=== PATIENT | female | born 1985 | race Caucasian/White ===

== ENCOUNTER → 2016-08-03 | Outpatient (CLI) | payer MEDICAID ==
--- NOTE | 2016-08-04 06:47 | US ---
EXAMINATION TYPE: US OB >= 14 wk fetus DATE OF EXAM: 08/03/2016 4:01 PM COMPARISON: See PACS ultrasound April 12, 2016 second trimester CLINICAL HISTORY: O36.63X0 Large for dates TECHNIQUE: Transabdominal (TA) pelvic ultrasound. GESTATIONAL AGE / DATING Physician Established: (35 weeks/1 days) EDC: 08/19/16 Dates by LMP: unknown Dates by First Scan: not available Dates by Current Scan: (37 weeks/5 days) EDC: 09/07/15 SURVEY IUP: Single PLACENTA: Anterior PREVIA: No Previa TIBURCIO: 10.7 cm CERVICAL LENGTH (transabdominal: norm > 3.0cm): 3.2 cm BIOMETRY PRESENTATION: Vertex BPD: 2.4 cm 38 weeks / 2 days HC: 1.0 cm 38 weeks / 1 days AC: 2.3 cm 38 weeks / 0 days FL: 0.7 cm 36 weeks / 3 days ESTIMATED WEIGHT IN GRAMS: 3257 grams ESTIMATED WEIGHT IN LBS/OZS: 7 lbs. 3 oz. WEIGHT PERCENTAGE BASED ON ESTABLISHED DATES: 98% HC/AC: 0.98 FL/AC: 21 HEART RATE: 156 bpm RHYTHM: Normal TECHNOLOGIST IMPRESSION: Measuring large for dates, called office, spoke with Rina to let them kn ow. Single live intrauterine gestation is redemonstrated. Normal vertex presentation is seen. There is no ultrasound evidence for placenta previa. Amniotic fluid index is within normal limits. biometr y measurements are advanced from expected range with weight estimated above the expected normal range. Findings correlate with large for gestational age. IMPRESSION: As above.
== END | disposition home or self-care (01) ==
LOC: RADUSWWP 15:27
PROVIDERS: ATTEND Obstetrics & Gynecology
DX: O36.63X0 Maternal care for excessive fetal growth, third trimester, not applicable or unspecified (principal); Z3A.37 37 weeks gestation of pregnancy
CPT/HCPCS: 76805

== ENCOUNTER → 2016-08-17 | Outpatient (CLI) | payer MEDICAID ==
--- NOTE | 2016-08-17 13:34 | US ---
EXAMINATION TYPE: US OB anatomy transabd DATE OF EXAM: 08/17/2016 11:37 AM COMPARISON: NONE HISTORY: LGA TECHNIQUE: Transabdominal (TA) EXAM MEASUREMENTS: GESTATIONAL AGE / DATING Physician Established: (37 weeks/1 days) EDC: 09/06/2016 Dates by LMP: unknown Dates by First Scan: not available Dates by Current Scan for: (38 weeks/6 days) EDC: 08/25/16 SURVEY IUP: Single PLACENTA: Anterior PREVIA: No previa TIBURCIO: 9.8 cm CERVICAL LENGTH (transabdominal: norm > 3.0cm): 3.1 cm BIOMETRY PRESENTATION: Vertex BPD: 9.8 cm 40 weeks / 2 days HC: 33.9 cm 39 weeks / 1 days AC: 35.5 cm 39 weeks / 3 days FL: 7.6 cm 38 weeks / 4 days ESTIMATED WEIGHT IN GRAMS: 3757 grams ESTIMATED WEIGHT IN LBS/OZS: 8 lbs. 5 oz. WEIGHT PERCENTAGE BASED ON ESTABLISHED DATE: 96 % HC/AC: 0.9 FL/AC: 21.2 HEART RATE: 140 bpm RHYTHM: Normal ANATOMY SEEN (within normal limits): Stomach 4 chamber heart Nose / Lips Diaphragm Kidneys (bilateral) Bladder Longitudinal Spine Transverse Spine ANATOMY NOT SEEN: Due to large size/ position, below anatomy not seen * Lateral Vent (< 1 cm) cm * Cisterna Magna (< 1.1 cm) cm * Nuchal Fold (< 0.6 cm) cm * Cerebellum (varies with age) cm Choroid Plexus (bilateral) Midline Falx Cavus Septi Pellucidi Four Chamber Heart Outflow tracts: LVOT/RVOT Situs Arms (bilateral) Legs (bilateral) Cord Insert Three Vessel Cord IMPRESSION: Single viable intrauterine corresponding to ultrasound age 38 weeks 6 days with estimated d ate of delivery 25 August 2016 by today's exam, limited survey
== END | disposition home or self-care (01) ==
LOC: RADUSWWP 10:56
PROVIDERS: ATTEND Obstetrics & Gynecology
DX: O36.63X0 Maternal care for excessive fetal growth, third trimester, not applicable or unspecified (principal); Z3A.38 38 weeks gestation of pregnancy
CPT/HCPCS: 76805

== ENCOUNTER 2016-08-19 16:14 | Inpatient (IN) | payer MEDICAID ==
[2016-08-19 16:43] LABS: Amorphous Sediment,Urine Occasional /hpf; Appearance,Urine Cloudy (Clear); Bilirubin,Urine Negative (Negative); Glucose,Urine (UA) Negative (Negative); Ketones,Urine Negative (Negative); Leukocyte Esterase,Urine Trace (Negative); Mucus,Urine Rare /hpf; Nitrite,Urine Negative (Negative); PH, Urine 6.5 (5.0-8.0); Particle Count 11107; Protein,Urine 1+ (Negative); RBC,Urine 2 /hpf (0-5); Specific Gravity,Urine 1.019 (1.001-1.035); Squamous Epithelial Cell,Urine 1 /hpf (0-4); UA Billing (MACRO vs. MICRO) MICRO; Urobilinogen,Urine <2.0 mg/dL (<2.0); WBC,Urine 13 /hpf (0-5)
[2016-08-19 16:55] LABS: Basophils % (A) 0 %; CH 26.8; CHCM 32.8; Eosinophils # (A) 0.1 k/uL (0-0.7); Eosinophils % (A) 1 %; HCT 36.7 % (34.0-46.0); HDW 3.55; Hypochromasia Slight; Luc # (Auto) 0.32; Luc % (Auto) 3; Lymphocytes # (A) 1.2 k/uL (1.0-4.8); Lymphocytes % (A) 11 %; MCH 26.9 pg (25.0-35.0); MCHC 32.8 g/dL (31.0-37.0); MCV 82.1 fL (80.0-100.0); Mean Platelet Volume 7.4; Monocytes # (A) 0.4 k/uL (0-1.0); Monocytes % (A) 3 %; Neutrophils # (A) 8.9 k/uL (1.3-7.7); Neutrophils % (A) 82 %; Poikilocytosis Slight; RBC 4.47 m/uL (3.80-5.40); RDW 13.3 % (11.5-15.5); WBC 10.9 k/uL (3.8-10.6); WBC (Perox) 11.43
[2016-08-19 17:04] LABS: Partial Thromboplastin Time 22.9 sec (22.0-30.0); Prothrombin Time 9.8 sec (9.0-12.0)
[2016-08-19 17:06] LABS: ALT 27 U/L (9-52); AST 22 U/L (14-36); Blood Urea Nitrogen 10 mg/dL (7-17); LDH 563 U/L (313-618); Non-African American GFR(MDRD) >60 (>60 ml/min/1.73 sqM); Uric Acid 4.1 mg/dL (3.7-7.4)
[2016-08-19] MEDS ORDERED: LIDOCAINE 1% 20 ML VIAL (10MG/ML) FOR IV START INTRADERMA PRN (17:19)
[2016-08-19] MEDS ORDERED: LACTATED RINGERS 1,000 ML IV ONE (17:19)
[2016-08-19] MEDS ORDERED: CITRIC ACID-SODIUM CITRATE 15 ML CUP PO ONE (17:19)
[2016-08-19] MEDS ORDERED: ceFAZolin 2 GM in SODIUM CHLORIDE 0.9% 100 ML IVPB ONE (17:19)
[2016-08-19] MEDS ORDERED: LACTATED RINGERS 1,000 ML IV SCH (17:30)
--- NOTE | 2016-08-19 17:37 | P.HPOB ---
History of Present Illness H&P Date: 08/19/16 Chief Complaint: Gestational hypertension This is a 31-year-old female 1 para 0 with an estimated date of confinement of 09/06/2016 based on first trimester ultrasound, estimated gestational age of 37-3/7 weeks, who presents to labor and delivery after being seen in the office today for routine visit. At that time her blood pressures were elevated to 140/96, 140/100, and 136/94. She did complain of significant swelling in her hands and feet but no headaches or blurry vision. She has had a occasional nausea due to reflux but no significant epigastric pain. Her course has been complicated by macrosomia with her last ultrasound 2 days ago showing estimated weight of 8 lbs. 5 oz. with 96th percentile. Her cervix is closed any percent and -3 station. She complains of mild occasional contractions but no strong contractions. She admits to good movement. 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. Review of Systems Constitutional: Denies fever, Denies weakness Eyes: denies blurred vision Cardiovascular: Denies chest pain Respiratory: Denies cough Gastrointestinal: Reports heartburn, Denies nausea, Denies vomiting Genitourinary: Reports Musculoskeletal: bilateral: ankle swelling, foot swelling Neurological: Denies headaches Psychiatric: Denies anxiety, Denies depression Past Medical History Additional Past Medical History / Comment(s): Hodgkin's lymphoma, age 22, status post radiation and chemo. History of Any Multi-Drug Resistant Organisms: None Reported Additional Past Surgical History / Comment(s): Lymph node excision, neck, 2009 Past Psychological History: No Psychological Hx Reported Smoking Status: Never smoker Past Alcohol Use History: None Reported Past Drug Use History: None Reported Medications and Allergies Home Medications Medication Instructions Recorded Confirmed Type Pnv with Ca,No.72/Iron/FA 1 each PO 08/19/16 History [ Plus Tablet] Allergies Allergy/AdvReac Type Severity Reaction Status Date / Time No Known Allergies Allergy Verified 08/19/16 16:24 Exam Osteopathic Statement: *. No significant issues noted on an osteopathic structural exam other than those noted in the History and Physical/Consult. - Vital Signs Vital signs: Intake and Output 08/19/16 08/19/16 08/19/16 06:59 14:59 22:59 Other: Weight 87.09 kg Patient Weight 08/20/16 06:59 Weight 87.09 kg HEENT: Within normal limits Heart: Regular rate and rhythm Lungs: Clear to auscultation bilaterally Abdomen: with fundal height of 39 cm heart tones: Reactive Contractions: Irregular Cervix: Closed/70%/-3 station Extremities: 1+ pitting edema in her lower extremities and puffiness in her hands. Deep tendon reflexes are 2 over 4 bilaterally on her lower extremities Results Result Diagrams: 08/19/16 16:48 08/19/16 16:48 Abnormal Lab Results - Last 24 Hours (Table) 08/19/16 08/19/16 08/19/16 Range/Units 16:20 16:48 16:48 WBC 10.9 H (3.8-10.6) k/uL Neutrophils # 8.9 H (1.3-7.7) k/uL Creatinine 0.50 L (0.52-1.04) mg/dL Urine Appearance Cloudy H (Clear) Urine Protein 1+ H (Negative) Ur Leukocyte Esterase Trace H (Negative) Urine WBC 13 H (0-5) /hpf Amorphous Sediment Occasional H (None) /hpf Hyaline Casts 5 H (0-2) /lpf Urine Mucus Rare H (None) /hpf Assessment and Plan (1) 37 weeks gestation of Status: Acute (2) Gestational hypertension Status: Acute (3) Macrosomia affecting management of mother in third trimester Status: Acute Plan: Plan is admission for gestational hypertension. Patient was counseled on the current guidelines that recommend delivery after 37 weeks with gestational hypertension or preeclampsia. Since she is remote from delivery and her cervix is closed, I have recommended section. I did also benefits counselor her on the possibility of attempting Cervidil cervical ripening followed by oxytocin induction of labor in the morning. Since her estimated weight is in the 96 percentile, she is aware that there is an increased risk of shoulder dystocia and wishes to proceed with section. I have discussed the risks, benefits, and alternative therapies for the above- mentioned procedure and for both sedation/anesthesia as well as necessary blood products administration, if indicated, as they pertain to this patient. The patient has indicated her understanding and acceptance of the risks and procedures discussed.
[2016-08-19] MEDS ORDERED: NALBUPHINE 10 MG/ML AMPUL ONE (18:10)
[2016-08-19] MEDS ORDERED: ONDANSETRON 4 MG/2 ML VIAL ONE (18:10)
[2016-08-19] MEDS ORDERED: OXYTOCIN 10 UNIT/ML 1 ML VIAL IM ONE (18:10)
[2016-08-19] MEDS ORDERED: PHENYLEPHRINE-0.9% NACL SYG 1 MG/10 ML SYRINGE ONE (18:10)
[2016-08-19] MEDS ORDERED: MORPHINE SULFATE (PF) 0.3 MG/0.3 ML SYR ONE (18:10)
[2016-08-19] MEDS ORDERED: diphenhydrAMINE 50 MG/ML 1 ML VIAL IVP PRN ×3 (18:33→20:09)
[2016-08-19] MEDS ORDERED: NALBUPHINE 10 MG/ML AMPUL IV PRN (18:33)
[2016-08-19] MEDS ORDERED: ONDANSETRON 4 MG/2 ML VIAL IVP PRN ×2 (18:33→20:09)
[2016-08-19] MEDS ORDERED: MORPHINE SULFATE 4 MG/ML SYRINGE IVP PRN (18:33)
[2016-08-19] MEDS ORDERED: METOCLOPRAMIDE 5 MG/ML 2 ML VIAL IVP PRN ×2 (18:33→20:09)
[2016-08-19] MEDS ORDERED: NALOXONE 0.4 MG/ML 1 ML VIAL IV PRN ×2 (18:33→20:09)
--- NOTE | 2016-08-19 18:53 | P.OP ---
Date of Procedure: 08/19/16 Preoperative Diagnosis: 1. Intrauterine at 37-3/7 weeks. 2. Gestational hypertension. 3. Remote from delivery. 4. macrosomia. Postoperative Diagnosis: Same Procedure(s) Performed: Primary low transverse section Anesthesia: spinal (Duramorph) Surgeon: Jaja London Moderate Needs Teacher #1: Donald Blackwood Estimated Blood Loss (ml): 600 Pathology: other (Placenta) Condition: stable Disposition: floor Indications for Procedure: This is a 31-year-old female 1 para 0 at 37-3/7 weeks who presented with elevated blood pressures in the office. She continued to have elevated blood pressures in triage. Her labs showed 1+ protein but all other labs were normal. Based on her consistent elevated blood pressures, macrosomia based on ultrasound, and remote from delivery, the decision was made to proceed with section. I have discussed the risks, benefits, and alternative therapies for the above- mentioned procedure and for both sedation/anesthesia as well as necessary blood products administration, if indicated, as they pertain to this patient. The patient has indicated her understanding and acceptance of the risks and procedures discussed. Operative Findings: A viable female infant is noted in the vertex presentation with scores of 9 at 1 minute and 8 at 5 minutes and infant weight of 7 lbs. 11 oz. Placenta did appear to have an extra lobe. Normal uterus tubes and ovaries are noted. Description of Procedure: The patient is taken to the operating room where she is placed in the dorsal supine position with leftward tilt after spinal Duramorph anesthesia is given. She is prepped and draped in the normal sterile fashion. Skin was tested and found to be adequately anesthetized. A Pfannenstiel skin incision was made with a scalpel. A second knife was used to carry the incision down to the underlying layer of fascia. The fascia was nicked in the midline with a scalpel and then extended laterally bilaterally with Kidd scissors. The anterior lip of the fascia was grasped with 2 Miranda clamps and then dissected off the underlying rectus muscle in the midline with Kidd scissors. The inferior aspect of the fascial incision was grasped with 2 Miranda clamps and dissected off the underlying rectus muscle and the midline with Kidd scissors. Next the peritoneum layer was tented up with 2 hemostats and then entered sharply with the scalpel. The incision is extended superiorly and inferiorly with Metzenbaum scissors. Next a DeLee retractor is placed. The vesicouterine peritoneum is entered sharply with Metzenbaum scissors and extended laterally bilaterally with Metzenbaum scissors and then the bladder flap is pushed inferiorly. The lower uterine segment is incised in transverse fashion with the scalpel and then bluntly entered with a hemostat. Clear fluid is noted. The incision was then extended laterally bilaterally with 2 fingers. Next the infant's head is delivered through the incision. Nose and mouth are bulb suctioned. The remainder of the infant is easily delivered and placed on mother 's abdomen. Cord is clamped and cut. Infant is taken to warmer by nursing staff. Uterine fundus is gently massaged and placenta is delivered manually. Uterus is exteriorized and cleared of all clots and debris. Uterine incision is closed with 0 Vicryl suture in a running locked fashion. A second layer of 0 Vicryl suture is used in a running fashion for hemostasis. Once adequate hemostasis as assured, the vesicouterine peritoneum is reapproximated with 2-0 Vicryl suture in a running fashion. Posterior cul-de-sac is suctioned of all clots and debris. Uterus is returned to the abdomen. Incision is noted to be hemostatic. Peritoneal layer is closed with 0 Vicryl suture in a running fashion. Muscle layer is reapproximated with 0 Vicryl suture in interrupted fashion. Fascia layer is then closed with 0 PDS suture with 2 sutures meeting in the midline and the knots buried in either side and in the midline. The subcutaneous tissue was then closed with 2-0 Vicryl suture. Skin layer was then closed with tg. All sponge and needle counts are correct. The patient is taken to recovery room in stable condition.
[2016-08-19] MEDS ORDERED: diphenhydrAMINE 50 MG CAP PO PRN (20:09)
[2016-08-19] MEDS ORDERED: LANOLIN CREAM 5 GM TUBE TOPICAL PRN (20:09)
[2016-08-19] MEDS ORDERED: ZOLPIDEM 5 MG TAB PO PRN (20:09)
[2016-08-19] MEDS ORDERED: ACETAMINOPHEN TAB 325 MG TAB PO PRN (20:09)
[2016-08-19] MEDS ORDERED: diphenhydrAMINE 25 MG CAP PO PRN (20:09)
[2016-08-19] MEDS ORDERED: SIMETHICONE 80 MG CHEWABLE PO PRN (20:09)
[2016-08-19] MEDS ORDERED: Acetaminophen-Codeine 300-30mg TAB PO PRN ×2 (20:09)
[2016-08-19 20:28] VITALS: BMI 35.1
[2016-08-19] MEDS: SENNOSIDES-DOCUSATE SODIUM 1 EACH TAB PO SCH (20:55)
[2016-08-19] MEDS: KETOROLAC 30 MG/ML 1 ML VIAL IVP PRN (22:48)
[2016-08-19] MEDS: LACTATED RINGERS 1,000 ML IV SCH (22:52)
[2016-08-20] MEDS: OXYTOCIN 30 UNITS/500 ML NS 30 UNIT in SALINE 1 500ML.BAG IV SCH ×2 (01:19→05:47)
[2016-08-20 05:41] LABS: Basophils % (A) 0 %; CH 27.1; CHCM 33.6; Eosinophils # (A) 0.2 k/uL (0-0.7); Eosinophils % (A) 1 %; HCT 28.5 % (34.0-46.0); HDW 3.56; HGB 10.4 gm/dL (11.4-16.0); Luc # (Auto) 0.19; Luc % (Auto) 2; Lymphocytes # (A) 0.8 k/uL (1.0-4.8); Lymphocytes % (A) 7 %; MCH 29.3 pg (25.0-35.0); MCHC 36.3 g/dL (31.0-37.0); MCV 80.8 fL (80.0-100.0); Mean Platelet Volume 8.1; Monocytes # (A) 0.4 k/uL (0-1.0); Monocytes % (A) 3 %; Neutrophils # (A) 9.5 k/uL (1.3-7.7); Neutrophils % (A) 86 %; Poikilocytosis Slight; RBC 3.53 m/uL (3.80-5.40); RDW 13.4 % (11.5-15.5); WBC (Perox) 12.09
[2016-08-20] MEDS: LACTATED RINGERS 1,000 ML IV SCH (05:47)
--- NOTE | 2016-08-20 08:14 | P.PN ---
Progress Note - Text Date:08/20 Time:705 Patient is status post . Patient seen this morning with VAS score of 2.no c/o of pruritus, no c/o nausea/vomiting, comfortable and doing well.
[2016-08-20] MEDS: SENNOSIDES-DOCUSATE SODIUM 1 EACH TAB PO SCH ×2 (08:15→21:01)
[2016-08-20] MEDS ORDERED: PRENATAL VIT-IRON-FOLIC ACID 1 EACH CAP PO SCH (09:00)
--- NOTE | 2016-08-20 09:02 | P.PNOBGPC ---
Subjective - Subjective Principal diagnosis: Status post primary section postoperative day #1 Interval history: Patient is doing well. She is ambulating. She has been able to urinate so far this morning. She denies any flatus or bowel movement yet. Pain is well- controlled. Baby is in special care nursery at this time. Lochia is minimal. Patient reports: Reports appetite normal, Reports voiding normally, Reports pain well controlled, Reports ambulating normally [place]: other (In special care nursery) Objective - Vital Signs Latest vital signs: Vital Signs Temp Pulse Resp BP Pulse Ox 08/20/16 04:00 98.0 F 110 H 16 133/91 08/20/16 00:00 98.0 F 106 H 16 134/73 96 08/19/16 20:59 97.9 F 111 H 16 120/65 97 08/19/16 20:29 121 H 16 144/67 98 08/19/16 19:59 114 H 16 136/66 99 08/19/16 19:44 106 H 16 150/61 99 08/19/16 19:29 112 H 16 99 08/19/16 19:14 96.8 F L 105 H 16 102/50 100 08/19/16 18:59 111 H 16 102/56 100 08/19/16 17:19 97.0 F L 127 H 16 149/94 Intake and Output 08/19/16 08/20/16 08/20/16 22:59 06:59 14:59 Intake Total 1100 Output Total 850 950 Balance 250 -950 Intake: IV 500 Blood Product 600 Output: Urine 250 350 Uretheral (Khalil) 350 Estimated Blood Loss 600 600 Other: Weight 87.09 kg - Exam Extremities: Present: edema. Absent: tenderness Abdomen: Present: normal appearance, soft (Positive bowel sounds 4). Absent: distention, tenderness Incision: Present: normal, dry, intact Uterus: Present: normal, firm. Absent: tenderness - Labs Labs: Abnormal Lab Results - Last 24 Hours (Table) 08/19/16 08/19/16 08/19/16 Range/Units 16:20 16:48 16:48 WBC 10.9 H (3.8-10.6) k/uL RBC (3.80-5.40) m/uL Hgb (11.4-16.0) gm/dL Hct (34.0-46.0) % Plt Count (150-450) k/uL Neutrophils # 8.9 H (1.3-7.7) k/uL Lymphocytes # (1.0-4.8) k/uL Creatinine 0.50 L (0.52-1.04) mg/dL Urine Appearance Cloudy H (Clear) Urine Protein 1+ H (Negative) Ur Leukocyte Esterase Trace H (Negative) Urine WBC 13 H (0-5) /hpf Amorphous Sediment Occasional H (None) /hpf Hyaline Casts 5 H (0-2) /lpf Urine Mucus Rare H (None) /hpf 08/20/16 Range/Units 05:22 WBC 11.0 H (3.8-10.6) k/uL RBC 3.53 L (3.80-5.40) m/uL Hgb 10.4 L (11.4-16.0) gm/dL Hct 28.5 L (34.0-46.0) % Plt Count 125 L (150-450) k/uL Neutrophils # 9.5 H (1.3-7.7) k/uL Lymphocytes # 0.8 L (1.0-4.8) k/uL Creatinine (0.52-1.04) mg/dL Urine Appearance (Clear) Urine Protein (Negative) Ur Leukocyte Esterase (Negative) Urine WBC (0-5) /hpf Amorphous Sediment (None) /hpf Hyaline Casts (0-2) /lpf Urine Mucus (None) /hpf Assessment and Plan (1) 37 weeks gestation of Current Visit: Yes Status: Acute Code(s): Z3A.37 - 37 WEEKS GESTATION OF SNOMED Code(s): 38375335 (2) Gestational hypertension Current Visit: Yes Status: Acute Code(s): O13.9 - GESTATIONAL HTN W/O SIGNIFICANT PROTEINURIA, UNSP TRIMESTER SNOMED Code(s): 85395869 (3) Macrosomia affecting management of mother in third trimester Current Visit: Yes Status: Acute Code(s): O36.63X0 - MATERNAL CARE FOR EXCESS GROWTH, THIRD TRIMESTER, UNSP SNOMED Code(s): 23792071 (4) delivery delivered Narrative/Plan: Impression is status post delivery postoperative day #1. Plan is to continue with postoperative care. Will advance diet after flatus. Patient is encouraged to continue ambulating. Current Visit: Yes Status: Acute Code(s): O82 - ENCOUNTER FOR DELIVERY WITHOUT INDICATION SNOMED Code(s): 152510233
[2016-08-20] MEDS: KETOROLAC 30 MG/ML 1 ML VIAL IVP PRN (20:59)
[2016-08-21] MEDS: LACTATED RINGERS 1,000 ML IV SCH (02:16)
--- NOTE | 2016-08-21 07:18 | P.PNOBGPC ---
Subjective - Subjective Principal diagnosis: Status post primary section postoperative day #2 Interval history: Patient is ambulating. She is eating solid foods and did start to pass flatus. She denies any bowel movement. She is urinating without difficulty. Pain is fairly well controlled. Lochia is very minimal. Baby is in special care nursery. Patient reports: Reports appetite normal, Reports voiding normally, Reports pain well controlled, Reports ambulating normally : other (In special care nursery) Objective - Vital Signs Latest vital signs: Vital Signs Temp Pulse Resp BP Pulse Ox 08/21/16 00:00 97.7 F 108 H 18 113/63 98 08/20/16 16:00 97.7 F 99 20 138/94 98 08/20/16 12:00 97.8 F 99 20 125/78 98 08/20/16 08:00 98.3 F 105 H 20 131/93 96 - Exam Extremities: Present: edema Abdomen: Present: normal appearance, soft (Positive bowel sounds 4). Absent: distention, tenderness Incision: Present: normal, dry, intact. Absent: erythematous Uterus: Present: normal, firm. Absent: tenderness Assessment and Plan (1) 37 weeks gestation of Current Visit: Yes Status: Acute Code(s): Z3A.37 - 37 WEEKS GESTATION OF SNOMED Code(s): 98811369 (2) Gestational hypertension Current Visit: Yes Status: Acute Code(s): O13.9 - GESTATIONAL HTN W/O SIGNIFICANT PROTEINURIA, UNSP TRIMESTER SNOMED Code(s): 70668578 (3) Macrosomia affecting management of mother in third trimester Current Visit: Yes Status: Acute Code(s): O36.63X0 - MATERNAL CARE FOR EXCESS GROWTH, THIRD TRIMESTER, UNSP SNOMED Code(s): 73647421 (4) delivery delivered Narrative/Plan: Impression is status post primary low transverse section postoperative day #2. Plan is to continue with postoperative care since baby is in special care nursery at this time. Current Visit: Yes Status: Acute Code(s): O82 - ENCOUNTER FOR DELIVERY WITHOUT INDICATION SNOMED Code(s): 195794834
[2016-08-21] MEDS: SENNOSIDES-DOCUSATE SODIUM 1 EACH TAB PO SCH ×2 (07:57→20:55)
[2016-08-21] MEDS: IBUPROFEN 600 MG TAB PO PRN (15:21)
[2016-08-22] MEDS: IBUPROFEN 600 MG TAB PO PRN ×2 (02:25→17:52)
--- NOTE | 2016-08-22 08:01 | P.PNOBGPC ---
Subjective - Subjective Principal diagnosis: Status post primary section postoperative day #3 Interval history: Patient is doing well. She is passing flatus and bowel movement. Pain is fairly well controlled with her pain medication. She is pumping her breast milk. Lochia is decreasing. Baby is in special care nursery. Patient reports: Reports appetite normal, Reports voiding normally, Reports pain well controlled, Reports ambulating normally : other (In special care nursery) Objective - Vital Signs Latest vital signs: Vital Signs Temp Pulse Resp BP 08/22/16 00:00 97.7 F 110 H 18 130/88 08/21/16 16:00 97.5 F L 116 H 16 134/87 08/21/16 08:01 97.5 F L Intake and Output 08/21/16 08/22/16 08/22/16 22:59 06:59 14:59 Other: Voiding Method Toilet - Exam Extremities: Present: edema Abdomen: Present: soft (Positive bowel sounds 4). Absent: distention, tenderness Incision: Present: normal, dry, intact Uterus: Present: normal, firm. Absent: tenderness Assessment and Plan (1) 37 weeks gestation of Current Visit: Yes Status: Acute Code(s): Z3A.37 - 37 WEEKS GESTATION OF SNOMED Code(s): 98329970 (2) Gestational hypertension Current Visit: Yes Status: Acute Code(s): O13.9 - GESTATIONAL HTN W/O SIGNIFICANT PROTEINURIA, UNSP TRIMESTER SNOMED Code(s): 03635779 (3) Macrosomia affecting management of mother in third trimester Current Visit: Yes Status: Acute Code(s): O36.63X0 - MATERNAL CARE FOR EXCESS GROWTH, THIRD TRIMESTER, UNSP SNOMED Code(s): 90530158 (4) delivery delivered Narrative/Plan: Impression is status post primary section postoperative day #3. Plan is to continue with postoperative care through tomorrow. Her baby is still in special care nursery. We'll give a prescription for breast pump. Anticipate discharge home tomorrow. Current Visit: Yes Status: Acute Code(s): O82 - ENCOUNTER FOR DELIVERY WITHOUT INDICATION SNOMED Code(s): 117686861
[2016-08-22] MEDS: SENNOSIDES-DOCUSATE SODIUM 1 EACH TAB PO SCH ×2 (09:59→20:46)
[2016-08-23] MEDS: IBUPROFEN 600 MG TAB PO PRN (07:54)
--- NOTE | 2016-08-23 08:29 | P.DS ---
Providers Date of admission: 08/19/16 17:18 Expected date of discharge: 08/23/16 Attending physician: Jaja London Primary care physician: Jaja London - Discharge Diagnosis(es) (1) 37 weeks gestation of Current Visit: Yes Status: Acute (2) Gestational hypertension Current Visit: Yes Status: Acute (3) Macrosomia affecting management of mother in third trimester Current Visit: Yes Status: Acute (4) delivery delivered Current Visit: Yes Status: Acute Hospital Course: This is a 31-year-old female 1 para 0 who presented from the office after elevated blood pressures were noted. She continued to have elevated blood pressures at the hospital and therefore underwent a primary low transverse section secondary to gestational hypertension and macrosomia remote from delivery. She delivered a viable female infant with scores of 9 at 1 minute and 8 at 5 minutes and weight of 7 lbs. 11 oz. Her postoperative course is essentially uncomplicated. She did have some isolated elevated blood pressures but she thinks that was due to anxiety. Currently her blood pressures have stabilized. She is passing flatus and bowel movement. She is urinating without difficulty. She is pumping her breast milk. Lochia is decreasing. Pain is well controlled with just ibuprofen. Vital signs are stable. Abdomen is soft with positive bowel sounds 4. Incision is clean dry and intact. Extremities show negative Homans, but 2+ pitting edema. Impression is status post primary low transverse section postoperative day #4. Plan is to discharge home today. Placido will be removed and sterile strips placed prior to discharge. Routine postoperative and instructions are given. She is advised to follow up in the office in approximately 1 week for a postoperative check and in 6 weeks for check. She is advised to call the office if she has any further questions or concerns prior to her appointment time. Procedures: Primary low transverse section on 08/19/2016 Patient Condition at Discharge: Stable Plan - Discharge Summary New Discharge Prescriptions: Acetaminophen-Codeine 300-30mg [Tylenol w/codeine #3] 1 each PO Q4HR PRN #30 tab PRN Reason: Mild Pain Ibuprofen [Motrin] 600 mg PO Q6HR PRN #60 tab PRN Reason: Mild Pain Or Fever >= 100.5 Discharge Medication List Pnv with Ca,No.72/Iron/FA [ Plus Tablet] 1 tab PO DAILY 08/19/16 [ History] Acetaminophen-Codeine 300-30mg [Tylenol w/codeine #3] 1 each PO Q4HR PRN #30 tab 08/22/16 [Rx] Ibuprofen [Motrin] 600 mg PO Q6HR PRN #60 tab 08/22/16 [Rx] Follow up Appointment(s)/Referral(s): Jaja London DO [Primary Care Provider] - 1 Week Activity/Diet/Wound Care/Special Instructions: Instructions 1. Do not begin any exercise program for 3 weeks. 2. Do not resume sexual relations for 3 weeks or longer if uncomfortable. 3. You may take tub baths or showers at any time. 4. You may use tampons if desired after 3 weeks. 5. Keep the area of episiotomy (stitches) clean and dry. 6. If you are not nursing, wear a good fitting, supportive bra during the day and limit fluid intake for at least 1 week to prevent breast engorgement. 7. Call the office, [phone], within the next week to make appointment for your 6 week checkup if it has not already been made. 8. Report any of the following occurrences to the doctor promptly: a. Heavy, excessive bleeding b. Chills, fever c. Burning or frequency of urination d. Pain or redness and breasts if nursing e. Increasing pain or swelling in episiotomy (stitches). In addition to the above instructions, the following additional should be followed: 1. No heavy lifting or straining (exercising) until after 6 week checkup. 2. Keep abdominal incision clean and dry: You may wear a dressing if more comfortable. 3. Make office appointment for 10 days after going home or as instructed by her doctor. Discharge Disposition: HOME SELF-CARE
[2016-08-23] MEDS: SENNOSIDES-DOCUSATE SODIUM 1 EACH TAB PO SCH (09:14)
[2016-08-23 14:25] VITALS: TEMP 97.7
[2016-08-23] MEDS ORDERED: LABETALOL 100 MG TAB PO SCH ×2 (18:00→21:00)
[2016-08-23 18:59] VITALS: BP 138/99; PULSE 107; RESP 18
== END 2016-08-23 19:01 | disposition home or self-care (01) | DRG 766 ==
LOC: FBPOP 16:14 → 4FBP 17:18
PROVIDERS: ADMIT Obstetrics & Gynecology; ATTEND Obstetrics & Gynecology
PROC: 10D00Z1 Extraction of Products of Conception, Low, Open Approach (ICD-10-PCS; principal; 2016-08-19 18:00)
DX: O13.4 Gestational [pregnancy-induced] hypertension without significant proteinuria, complicating childbirth (principal); K21.9 Gastro-esophageal reflux disease without esophagitis; O99.62 Diseases of the digestive system complicating childbirth; O36.63X0 Maternal care for excessive fetal growth, third trimester, not applicable or unspecified; Z37.0 Single live birth; Z3A.37 37 weeks gestation of pregnancy; Z85.71 Personal history of Hodgkin lymphoma; Z92.21 Personal history of antineoplastic chemotherapy; Z92.3 Personal history of irradiation; Z79.899 Other long term (current) drug therapy
CPT/HCPCS: 59025; 81001; 82565; 83615; 84450; 84460; 84520; 84550; 85025; 85610; 85730; 86850; 86900; 86901; 88307; 99215

== ENCOUNTER → 2018-02-10 | Outpatient (CLI) | payer MEDICAID ==
[2018-02-10 11:00] LABS: HCT 43.4 % (34.0-46.0); HGB 13.9 gm/dL (11.4-16.0); MCH 26.8 pg (25.0-35.0); MCHC 32.1 g/dL (31.0-37.0); MCV 83.4 fL (80.0-100.0); Mean Platelet Volume 6.6; Platelet Count 243 k/uL (150-450); RDW 13.2 % (11.5-15.5); WBC 6.9 k/uL (3.8-10.6)
[2018-02-10 11:23] LABS: Glucose 61 mg/dL (74-99)
== END | disposition home or self-care (01) ==
LOC: LABWHC1 10:07
PROVIDERS: ATTEND Obstetrics & Gynecology
DX: Z34.81 Encounter for supervision of other normal pregnancy, first trimester (principal); Z3A.00 Weeks of gestation of pregnancy not specified
CPT/HCPCS: 36415; 82565; 82947; 85027; 86762; 86780; 86850; 86900; 86901; 87340

== ENCOUNTER → 2018-02-16 | Outpatient (CLI) | payer MEDICAID ==
--- NOTE | 2018-02-16 23:05 | US ---
EXAMINATION TYPE: Ultrasound OB <= 14 week fetus DATE OF EXAM: 09/20/17 COMPARISON: NONE CLINICAL HISTORY: 32-year-old female Z36 CONFIRM DATES. EXAM PERFORMED: Transabdominal (TA) FINDINGS: EXAM MEASUREMENTS: GESTATIONAL AGE / DATING Physician Established: Not yet established Dates by LMP: 12/05/2017 (10 weeks/3 days) EDC: 09/11/2017 Dates by First Scan: No previous this is first scan Dates by Current Scan for: (10 weeks/5 days) EDC: 09/09/2017 MATERNAL ANATOMY Uterus: 12.5 x 6.8 x 7.5 cm Right Ovary: 2.6 2.4 X 2.1 cm Left Ovary: 2.5 x 2.4 x 2.3 Post CDS / Adnexa: wnl Presence of free fluid: no Presence of corpus luteal cyst: small left ov cyst 1.1 x 0.9 x 0.9 cm Presence of subchorionic bleed: no GESTATION / SURVEY CRL: 4.1 cm (11 weeks/0 days) MSD: 4.7 cm (10 weeks/2 days) Yolk Sac (normal less than 6mm): not seen placenta: anterior, low lying with apparent marginal placenta previa. Heart Rate: 138 bpm Rhythm: normal IUP: yes Date of LMP: 12/05/17 Beta HcG (if available): NA IMPRESSION: 1. Single live intrauterine with estimated gestational age of 10 weeks 3 days [facility]. [facility] (10 weeks 5 days). 2. Marginal placenta previa at this time. Reassess at the patient's follow-up. 3. Complete survey recommended at 18-20 weeks.
== END | disposition home or self-care (01) ==
LOC: RADUSWWP 15:30
PROVIDERS: ATTEND Obstetrics & Gynecology
DX: O44.21 Partial placenta previa NOS or without hemorrhage, first trimester (principal); Z3A.10 10 weeks gestation of pregnancy
CPT/HCPCS: 76801

== ENCOUNTER → 2018-05-26 | Outpatient (CLI) | payer MEDICAID ==
[2018-05-26 17:13] LABS: HCT 35.9 % (34.0-46.0); HGB 11.7 gm/dL (11.4-16.0); MCH 28.6 pg (25.0-35.0); MCHC 32.6 g/dL (31.0-37.0); MCV 87.5 fL (80.0-100.0); Mean Platelet Volume 6.5; Platelet Count 210 k/uL (150-450); RDW 14.6 % (11.5-15.5); WBC 9.2 k/uL (3.8-10.6)
== END | disposition home or self-care (01) ==
LOC: LABWHC1 15:57
PROVIDERS: ATTEND Obstetrics & Gynecology
DX: Z34.82 Encounter for supervision of other normal pregnancy, second trimester (principal)
CPT/HCPCS: 36415; 82950; 85027

== ENCOUNTER → 2018-07-12 | Outpatient (CLI) | payer MEDICAID ==
[2018-07-12 16:20] LABS: Amorphous Sediment,Urine Occasional /hpf; Appearance,Urine Cloudy (Clear); Bilirubin,Urine Negative (Negative); Blood,Urine Negative (Negative); Calcium Oxalate Crystals,Urine Few /hpf; Color,Urine Dark Yellow; Glucose,Urine (UA) Negative (Negative); Ketones,Urine Negative (Negative); Leukocyte Esterase,Urine Negative (Negative); Mucus,Urine Few /hpf; Nitrite,Urine Negative (Negative); PH, Urine 6.5 (5.0-8.0); Protein,Urine 1+ (Negative); RBC,Urine 6 /hpf (0-5); Specific Gravity,Urine 1.026 (1.001-1.035); Squamous Epithelial Cell,Urine 20 /hpf (0-4); WBC,Urine 19 /hpf (0-5)
== END ==
LOC: LABWHC1 14:17
PROVIDERS: ATTEND Obstetrics & Gynecology
DX: R31.9 Hematuria, unspecified (principal)
CPT/HCPCS: 81001; 87086

== ENCOUNTER 2018-07-27 13:49 | Outpatient (CLI) | payer MEDICAID ==
--- NOTE | 2018-09-06 13:29 | P.MSEPDOC ---
Presenting Problems - Arrival Data Date of Arrival on Unit: 07/27/18 Time of Arrival on Unit: 14:00 Mode of Transport: Ambulatory I agree with the RN Medical Screening Exam: Yes Risk & Benefit of care provided described in d/c instruction: Yes Diagnosis: GESTATIONAL HTN W/O SIGNIFICANT PROTEINURIA, THIRD TRIMESTER
== END 2018-07-27 14:36 | disposition home or self-care (01) ==
LOC: FBPOP 13:49
PROVIDERS: ATTEND Obstetrics & Gynecology
DX: O13.3 Gestational [pregnancy-induced] hypertension without significant proteinuria, third trimester (principal); Z3A.00 Weeks of gestation of pregnancy not specified
CPT/HCPCS: 59025

== ENCOUNTER 2018-08-03 11:57 | Outpatient (CLI) | payer MEDICAID ==
[2018-08-03 13:54] VITALS: BP 126/82; PULSE 122; RESP 16; TEMP 97.3
--- NOTE | 2018-08-04 08:35 | P.MSEPDOC ---
Presenting Problems - Arrival Data Date of Arrival on Unit: 08/03/18 Time of Arrival on Unit: 11:57 Mode of Transport: Ambulatory - Complaint OB-Reason for Admission/Chief Complaint: NST Comment: hx of pih severe with last preg Medical History - Information : 2 Para: 1 Term: 0 : 1 Abortions: Spontaneous or Elective: 0 Number of Living Children: 0 - Gestational Age Gestational Age by CLARISA (wks/days): 34 Weeks and 3 Days - History Complications: Other Review of Systems - Review of Systems Constitutional: No problems Breast: No problems ENT: No problems Cardiovascular: No problems Respiratory: No problems Gastrointestinal: No problems Genitourinary: No problems Musculoskeletal: No problems Neurological: No problems Skin: No problems Comment: heart rate 120's dr aware Vital Signs - Temperature Temperature: 97.3 F Temperature Source: Temporal Artery Scan - Pulse Right Radial Pulse Rate: 122 Pulse Assessment Method: Automatic Cuff - Respirations Respiratory Rate: 16 Oxygen Delivery Method: Room Air O2 Sat by Pulse Oximetry: 96 - Blood Pressure Right Arm Blood Pressure: 126/82 Blood Pressure Mean: 96 Blood Pressure Source: Automatic Cuff Medical Screen Scoring (Pre) - Cervical Exam Dilation: Exam Deferred Effacement: Exam Deferred Membranes: Intact - Uterine Contractions Frequency: N/A Duration: N/A Intensity: N/A - Maternal Vital Signs Maternal Temperature: N/A Maternal Blood Pressure: N/A Signs of Preeclampsia: N/A Maternal Respirations: N/A - Pain Assessment Pain Scale Used: Numeric (1 - 10) Pain Intensity: 0 Pain Behavior: Vocalization - Maternal Trauma Maternal Trauma: N/A - Assessment Baseline FHR: 160 Heart Rate - NICHD Category: Category I (Normal) = 0 NST: Reactive Position: N/A Station: N/A - Total Score Total Score (Pre): 0 - Level of Risk Level of Risk: Low (0-5) Physician Notification (Pre) - Physician Notified Physician Notified Date: 08/03/18 Physician Notified Time: 12:35 Physician/Practitioner Notifed:: francesca Spoke With: francesca New Order Received: Yes (discharge with instructions) - Notification Comment Comment: biweekly nst's. Disposition - Disposition OB Disposition: Discharge to home, Written follow up instructions reviewed Discharge Date: 08/03/18 Discharge Time: 12:35 I agree with the RN Medical Screening Exam: Yes Risk & Benefit of care provided described in d/c instruction: Yes Diagnosis: PERSONAL HISTORY OF COMP OF PREG, CHLDBRTH AND THE PUERP
== END 2018-08-03 12:35 | disposition home or self-care (01) ==
LOC: FBPOP 11:57
PROVIDERS: ATTEND Obstetrics & Gynecology
DX: Z09 Encounter for follow-up examination after completed treatment for conditions other than malignant neoplasm (principal); Z87.59 Personal history of other complications of pregnancy, childbirth and the puerperium; Z3A.34 34 weeks gestation of pregnancy
CPT/HCPCS: 59025

== ENCOUNTER 2018-08-04 15:05 | Observation (INO) | payer MEDICAID ==
[2018-08-04 16:06] LABS: Appearance,Urine Clear (Clear); Bilirubin,Urine Negative (Negative); Blood,Urine Negative (Negative); Color,Urine Light Yellow; Glucose,Urine (UA) Negative (Negative); Ketones,Urine 1+ (Negative); Leukocyte Esterase,Urine Negative (Negative); Nitrite,Urine Negative (Negative); Protein,Urine Negative (Negative); Specific Gravity,Urine 1.004 (1.001-1.035); Urobilinogen,Urine <2.0 mg/dL (<2.0)
[2018-08-04 16:31] VITALS: RESP 18
[2018-08-04 16:51] LABS: Basophils % (A) 0 %; Eosinophils # (A) 0.1 k/uL (0-0.7); Eosinophils % (A) 1 %; HCT 35.5 % (34.0-46.0); HGB 11.6 gm/dL (11.4-16.0); Lymphocytes # (A) 1.1 k/uL (1.0-4.8); Lymphocytes % (A) 12 %; MCH 27.3 pg (25.0-35.0); MCHC 32.7 g/dL (31.0-37.0); MCV 83.5 fL (80.0-100.0); Mean Platelet Volume 6.7; Monocytes # (A) 0.3 k/uL (0-1.0); Monocytes % (A) 3 %; Neutrophils % (A) 82 %; Platelet Count 248 k/uL (150-450); RBC 4.26 m/uL (3.80-5.40); RDW 14.3 % (11.5-15.5); WBC 9.7 k/uL (3.8-10.6)
[2018-08-04 17:02] LABS: Uric Acid 4.6 mg/dL (3.7-7.4)
[2018-08-04] MEDS ORDERED: CALCIUM CARBONATE 500 MG CHEWABLE PO PRN (17:44)
[2018-08-04] MEDS ORDERED: MAG HYDROX/AL HYDROX/SIMETH 30 ML CUP PO PRN (17:44)
[2018-08-04] MEDS ORDERED: ACETAMINOPHEN TAB 325 MG TAB PO PRN (17:44)
--- NOTE | 2018-08-04 17:57 | P.HPOB ---
History of Present Illness H&P Date: 08/04/18 Chief Complaint: Elevated blood pressure This is a 33-year-old female 2 para 1 with an estimated date of confinement of 09/11/2018, estimated gestational age of 34-4/7 weeks, who presented to labor and delivery today after not feeling very good at work and checking her blood pressure in the OR. She noted it to be 147/92. On arrival to triage, her first blood pressure was 151/95 and all of her blood pressures since then have been within normal range. She denies any blurry vision, headaches, epigastric pain. When she was at work today, she just felt like her pulse was racing a little bit. She states she has been drinking water throughout the day. She is feeling good movement. Labs were drawn for preeclampsia and her urine protein to creatinine ratio was 0.63. All of her other labs were within normal limits. I spoke with Dr. Iam Ignacio who has recommended that she be admitted and observed for 24 hours and receive betamethasone every 24 hours 2 doses. He also recommended repeating her lab work in the morning. As long as she is stable and she is not having any severe features of preeclampsia, she may be discharged on bed rest but will need weekly lab testing. If any features of severe preeclampsia, if she is before 35 weeks, she will need to be transferred to maternal- medicine and placed on magnesium sulfate. He also recommends delivery at 37 weeks if she has no features of severe preeclampsia. labs: GC/chlamydia-negative Random glucose-61 Hemoglobin-13.9 Syphilis antibody-nonreactive Blood type-O+ Antibody screen-negative Obstetrical ultrasound-normal anatomy One hour Glucola-121 Obstetrical history: . History of 1 delivery at 37-1/2 weeks due to mild preeclampsia with her first child. Gynecologic history: No history of sexual transmitted diseases. Social history: She is . 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 Review of Systems Constitutional: Denies chills, Denies fever Eyes: denies blurred vision Ears, nose, mouth and throat: Denies headache, Denies sore throat Cardiovascular: Reports rapid heart beat Respiratory: Denies cough Gastrointestinal: Denies abdominal pain Genitourinary: Reports Neurological: Denies numbness, Denies weakness Psychiatric: Denies anxiety, Denies depression Past Medical History Additional Past Medical History / Comment(s): Hodgkin's lymphoma, age 22, status post radiation and chemo. History of Any Multi-Drug Resistant Organisms: None Reported Past Surgical History: Section Additional Past Surgical History / Comment(s): Lymph node excision, neck, 2009 Past Anesthesia/Blood Transfusion Reactions: No Reported Reaction Past Psychological History: No Psychological Hx Reported Smoking Status: Never smoker Past Alcohol Use History: None Reported Past Drug Use History: None Reported - Past Family History Mother Family Medical History: No Reported History Medications and Allergies Home Medications Medication Instructions Recorded Confirmed Type Pnv,Calcium 72/Iron/Folic Acid 1 tab PO DAILY 08/19/16 08/04/18 History [ Plus Tablet] Aspirin 81 mg PO DAILY 07/27/18 08/04/18 History Levothyroxine Sodium [Synthroid] 75 mcg PO DAILY 07/27/18 08/04/18 History Ranitidine HCl [Zantac] 150 mg PO BID 08/04/18 08/04/18 History Allergies Allergy/AdvReac Type Severity Reaction Status Date / Time No Known Allergies Allergy Verified 08/04/18 15:46 Exam Osteopathic Statement: *. No significant issues noted on an osteopathic structural exam other than those noted in the History and Physical/Consult. Vital Signs Temp Pulse Resp BP Pulse Ox 08/04/18 15:55 108 H 18 133/83 08/04/18 15:41 115 H 128/84 08/04/18 15:35 125/81 08/04/18 15:30 137/84 08/04/18 15:25 97.9 F 117 H 20 151/95 98 Intake and Output 08/04/18 08/04/18 08/04/18 06:59 14:59 22:59 Other: Weight 80.195 kg HEENT: Within normal limits Heart: Regular rate and rhythm Lungs: Clear to auscultation bilaterally Abdomen: , nontender heart tones: Reactive Contractions: Irregular, rare Extremities: Deep tendon reflexes 3+ over 4 without clonus on her lower extremities Results Result Diagrams: 08/04/18 16:17 Abnormal Lab Results - Last 24 Hours (Table) 08/04/18 08/04/18 08/04/18 Range/Units 15:45 15:45 16:17 Neutrophils # 8.0 H (1.3-7.7) k/uL Urine Ketones 1+ H (Negative) U Random Total Protein 22 H (<12) mg/dL Assessment and Plan (1) 34 weeks gestation of Current Visit: Yes Status: Acute Code(s): Z3A.34 - 34 WEEKS GESTATION OF SNOMED Code(s): 46910134 (2) Preeclampsia Narrative/Plan: Without severe features Current Visit: Yes Status: Acute Code(s): O14.90 - UNSPECIFIED PRE-ECLAMPSIA , UNSPECIFIED TRIMESTER SNOMED Code(s): 266348071 Plan: Will admit for 24 hour observation. We'll give steroids 2 doses 24 hours apart. We'll repeat preeclampsia labs in the a.m. Will monitor blood pressures closely. NST every shift. If any features of severe preeclampsia, she will need to be started on magnesium sulfate and transferred to maternal- medicine due to prematurity.
[2018-08-04 18:04] VITALS: BMI 31.3
[2018-08-04] MEDS: BETAMET ACET-BETAMETH SOD PHOS 6 MG/ML VIAL IM SCH (18:13)
[2018-08-04] MEDS: FAMOTIDINE 20 MG TAB PO SCH (21:00)
--- NOTE | 2018-08-05 00:10 | P.MSEPDOC ---
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 c/o hypertension at work and not feeling well. denies headache, blurred vision or epig pain. no edema noted. bilat dtr patellar 3+ without clonus present. states some right flank pains at times but none present at this time. right flank percussion negative for discomfort. Medical History - Information : 2 Para: 1 Term: 1 : 0 Abortions: Spontaneous or Elective: 0 Number of Living Children: 1 - Gestational Age Gestational Age by CLARISA (wks/days): 34 Weeks and 4 Days Review of Systems - Review of Systems Constitutional: No problems Breast: No problems ENT: No problems Cardiovascular: No problems Respiratory: No problems Gastrointestinal: No problems Genitourinary: No problems Musculoskeletal: No problems Neurological: No problems Skin: No problems Vital Signs - Temperature Temperature Source: Oral - Pulse Right Brachial Pulse Rate: 117 Pulse Assessment Method: Automatic Cuff - Respirations Respiratory Rate: 18 Oxygen Delivery Method: Room Air - Blood Pressure Right Arm Blood Pressure: 135/83 Blood Pressure Mean: 100 Blood Pressure Source: Automatic Cuff Medical Screen Scoring (Pre) - Cervical Exam Dilation: Exam Deferred Effacement: Exam Deferred Membranes: Intact - Uterine Contractions Frequency: N/A - Maternal Vital Signs Maternal Temperature: N/A Maternal Blood Pressure: Diastolic > 89 = 1 Signs of Preeclampsia: Brisk DTR = 4 Maternal Respirations: N/A - Pain Assessment Pain Scale Used: Numeric (1 - 10) Pain Intensity: 0 Pain Behavior: None Exhibited - Maternal Trauma Maternal Trauma: N/A - Assessment Baseline FHR: 135 Heart Rate - NICHD Category: Category I (Normal) = 0 NST: Reactive Position: N/A Station: N/A - Total Score Total Score (Pre): 5 - Level of Risk Level of Risk: Low (0-5) Physician Notification (Pre) - Physician Notified Spoke With: francesca - Notification Comment Comment: dr ma here and viewed cb and ua results. awaiting other labs Physician Notification (Post) - Physician Notified Physician Notified Date: 08/04/18 Physician Notified Time: 17:30 Physician/Practitioner Notified:: FRANCESCA New Order Received: Yes - Notification Comment Comment: ADMIT 23 HR OBV. LABS IN AM. BETAMETHASONE 12 MG IM X 2 DOSES 24 HRS APART. Disposition - Disposition OB Disposition: Admit Transferred to:: [facility] FOR OBSERVATION I agree with the RN Medical Screening Exam: Yes Risk & Benefit of care provided described in d/c instruction: Yes Diagnosis: MILD TO MODERATE PRE-ECLAMPSIA, THIRD TRIMESTER
[2018-08-05 05:48] LABS: Appearance,Urine Clear (Clear); Bacteria,Urine Rare /hpf; Bilirubin,Urine Negative (Negative); Blood,Urine Negative (Negative); Color,Urine Yellow; Glucose,Urine (UA) Negative (Negative); Ketones,Urine 4+ (Negative); Leukocyte Esterase,Urine Negative (Negative); Mucus,Urine Rare /hpf; Nitrite,Urine Negative (Negative); Protein,Urine Trace (Negative); RBC,Urine 1 /hpf (0-5); Specific Gravity,Urine 1.011 (1.001-1.035); Squamous Epithelial Cell,Urine 2 /hpf (0-4); Urobilinogen,Urine <2.0 mg/dL (<2.0); WBC,Urine 1 /hpf (0-5)
[2018-08-05] MEDS ORDERED: LEVOTHYROXINE 75 MCG TAB PO SCH (06:30)
[2018-08-05 06:54] LABS: Basophils % (A) 0 %; Eosinophils % (A) 0 %; HCT 37.2 % (34.0-46.0); HGB 12.1 gm/dL (11.4-16.0); Lymphocytes # (A) 0.9 k/uL (1.0-4.8); Lymphocytes % (A) 10 %; MCH 27.5 pg (25.0-35.0); MCHC 32.6 g/dL (31.0-37.0); MCV 84.4 fL (80.0-100.0); Mean Platelet Volume 7.1; Monocytes # (A) 0.3 k/uL (0-1.0); Monocytes % (A) 3 %; Neutrophils # (A) 8.3 k/uL (1.3-7.7); Neutrophils % (A) 87 %; Platelet Count 246 k/uL (150-450); RBC 4.41 m/uL (3.80-5.40); RDW 14.4 % (11.5-15.5); WBC 9.6 k/uL (3.8-10.6)
[2018-08-05 07:34] LABS: ALT 38 U/L (9-52); AST 35 U/L (14-36); Blood Urea Nitrogen 6 mg/dL (7-17); LDH 548 U/L (313-618); Uric Acid 4.9 mg/dL (3.7-7.4)
[2018-08-05] MEDS ORDERED: NON-FORMULARY DRUG (Pnv,Calcium 72/Iron/Folic Acid [Prenatal Plus Tablet] 1 TAB) PO SCH (09:00)
[2018-08-05] MEDS ORDERED: ASPIRIN 81 MG PO SCH (09:00)
[2018-08-05] MEDS: FAMOTIDINE 20 MG TAB PO SCH (09:09)
[2018-08-05] MEDS ORDERED: PRENATAL VIT-IRON-FOLIC ACID 1 EACH CAP PO SCH (12:00)
--- NOTE | 2018-08-05 12:48 | P.DS ---
Providers Date of admission: 08/04/18 17:45 Expected date of discharge: 08/05/18 Attending physician: Jaja London Primary care physician: Stated None - Discharge Diagnosis(es) (1) 34 weeks gestation of Current Visit: Yes Status: Acute (2) Preeclampsia Current Visit: Yes Status: Acute Hospital Course: This is a 33-year-old female 2 para 1 at 34-5/7 weeks' currently who presented yesterday with complaints of not feeling well and elevated blood pressures. She only had 2 elevated blood pressures however her lab work did show an elevated protein to creatinine ratio of 0.6. In consultation with maternal- medicine, the decision was made to admit for observation of blood pressures and to give late-term steroids for lung maturity. She currently denies any complaints. She denies any headaches, blurry vision, epigastric pain, or swelling. She is feeling good movement. She has irregular contractions. Her urine this morning did show 4+ ketones however she states she has been drinking plenty of water. Her pulse rate has been elevated into the 1 teens to 120s throughout her course however she is asymptomatic from this. Her blood pressures have all been in the normal range since she has been admitted. She will be due for her second dose of Celestone at approximately 6 PM tonight and then will be discharged home on modified bedrest. She is advised to continue twice weekly NSTs in the office and she does have an appointment with me on . I advised her I will give her an order slip to repeat her lab work weekly per [facility] recommendations. She also has an appointment with [facility] in 2 weeks. She is advised to return to the hospital if she starts having any severe headaches, blurry vision, epigastric pain, decreased movement, or any other concerns. Patient Condition at Discharge: Stable Plan - Discharge Summary New Discharge Prescriptions: No Action Pnv,Calcium 72/Iron/Folic Acid [ Plus Tablet] 1 tab PO DAILY Levothyroxine Sodium [Synthroid] 75 mcg PO DAILY Aspirin 81 mg PO DAILY Ranitidine HCl [Zantac] 150 mg PO BID Discharge Medication List Pnv,Calcium 72/Iron/Folic Acid [ Plus Tablet] 1 tab PO DAILY 08/19/16 [ History] Aspirin 81 mg PO DAILY 07/27/18 [History] Levothyroxine Sodium [Synthroid] 75 mcg PO DAILY 07/27/18 [History] Ranitidine HCl [Zantac] 150 mg PO BID 08/04/18 [History] Follow up Appointment(s)/Referral(s): Jaja London DO [Doctor of Osteopathic Medicine] - 08/10/18 Activity/Diet/Wound Care/Special Instructions: Modified bedrest. Off work. Return to the hospital if any severe headaches, blurry vision, severe epigastric pain, decreased movement, or any other concerns. Discharge Disposition: HOME SELF-CARE
[2018-08-05 16:08] VITALS: BP 118/71; PULSE 125; TEMP 98.1
[2018-08-05] MEDS: BETAMET ACET-BETAMETH SOD PHOS 6 MG/ML VIAL IM SCH (17:28)
== END 2018-08-05 17:35 | disposition home or self-care (01) ==
LOC: FBPOP 15:05 → 4FBP 17:45
PROVIDERS: ADMIT Obstetrics & Gynecology; ATTEND Obstetrics & Gynecology
DX: O14.03 Mild to moderate pre-eclampsia, third trimester (principal); Z3A.34 34 weeks gestation of pregnancy; Z85.72 Personal history of non-Hodgkin lymphomas; Z92.3 Personal history of irradiation; Z92.21 Personal history of antineoplastic chemotherapy; Z87.59 Personal history of other complications of pregnancy, childbirth and the puerperium; Z79.82 Long term (current) use of aspirin; Z79.890 Hormone replacement therapy; Z79.899 Other long term (current) drug therapy
CPT/HCPCS: 59025; 99215; 96372 ×2; 82570 ×2; 84156 ×2; 82565; 83615 ×2; 84450 ×2; 84460 ×2; 84520; 84550 ×2; 85025 ×2; 81003 ×2; G0378 ×2; J0702 ×2; S0197

== ENCOUNTER 2018-08-14 09:30 | Outpatient (CLI) | payer MEDICAID ==
[2018-08-14 09:55] VITALS: BP 132/90; PULSE 123; RESP 16; TEMP 97.3
[2018-08-14 10:10] LABS: Appearance,Urine Cloudy (Clear); Bacteria,Urine Few /hpf; Bilirubin,Urine Negative (Negative); Blood,Urine Negative (Negative); Color,Urine Light Yellow; Glucose,Urine (UA) Negative (Negative); Ketones,Urine Negative (Negative); Leukocyte Esterase,Urine Negative (Negative); Nitrite,Urine Negative (Negative); Protein,Urine Negative (Negative); Specific Gravity,Urine 1.002 (1.001-1.035); Squamous Epithelial Cell,Urine 10 /hpf (0-4); Urobilinogen,Urine <2.0 mg/dL (<2.0); WBC,Urine 3 /hpf (0-5)
[2018-08-14 10:26] LABS: Basophils % (A) 0 %; Eosinophils # (A) 0.3 k/uL (0-0.7); Eosinophils % (A) 3 %; HCT 36.2 % (34.0-46.0); HGB 11.9 gm/dL (11.4-16.0); Lymphocytes # (A) 1.3 k/uL (1.0-4.8); Lymphocytes % (A) 14 %; MCH 27.6 pg (25.0-35.0); MCHC 32.9 g/dL (31.0-37.0); MCV 83.8 fL (80.0-100.0); Monocytes # (A) 0.4 k/uL (0-1.0); Monocytes % (A) 5 %; Neutrophils # (A) 7.3 k/uL (1.3-7.7); Neutrophils % (A) 77 %; Platelet Count 223 k/uL (150-450); RBC 4.32 m/uL (3.80-5.40); RDW 14.5 % (11.5-15.5); WBC 9.5 k/uL (3.8-10.6)
[2018-08-14 10:39] LABS: ALT 38 U/L (9-52); AST 21 U/L (14-36); Blood Urea Nitrogen 5 mg/dL (7-17)
[2018-08-14 10:58] LABS: Uric Acid 3.6 mg/dL (3.7-7.4)
--- NOTE | 2018-08-14 13:11 | P.MSEPDOC ---
Presenting Problems - Arrival Data Date of Arrival on Unit: 08/14/18 Time of Arrival on Unit: 09:30 Mode of Transport: Ambulatory - Complaint OB-Reason for Admission/Chief Complaint: PIH Comment: pt comes with order from Dr. London for follow up labs before appt today at 1130 Medical History - Information : 2 Para: 1 Term: 1 : 0 Abortions: Spontaneous or Elective: 0 Number of Living Children: 1 - Gestational Age Gestational Age by CLARISA (wks/days): 36 Weeks and 0 Days - History Complications: Prior , Other Comment: repeat PIH workup Review of Systems - Review of Systems Constitutional: No problems Breast: No problems ENT: No problems Cardiovascular: No problems Respiratory: No problems Gastrointestinal: No problems Genitourinary: No problems Musculoskeletal: No problems Neurological: No problems Skin: No problems Vital Signs - Temperature Temperature: 97.3 F Temperature Source: Temporal Artery Scan - Pulse Right Brachial Pulse Rate: 123 Pulse Assessment Method: Automatic Cuff - Respirations Respiratory Rate: 16 Oxygen Delivery Method: Room Air - Blood Pressure Right Arm Blood Pressure: 132/90 Blood Pressure Mean: 104 Blood Pressure Source: Automatic Cuff Medical Screen Scoring (Pre) - Cervical Exam Dilation: Exam Deferred Effacement: Exam Deferred Membranes: Intact - Uterine Contractions Frequency: N/A, > or = 36 weeks =2 Duration: > 40 seconds = 2 Intensity: N/A - Maternal Vital Signs Maternal Blood Pressure: Diastolic > 89 = 1 Signs of Preeclampsia: N/A Maternal Respirations: N/A - Pain Assessment Pain Scale Used: Numeric (1 - 10) Pain Intensity: 0 - Maternal Trauma Maternal Trauma: N/A - Assessment Baseline FHR: 160 Heart Rate - NICHD Category: Category I (Normal) = 0 NST: Reactive Position: N/A Station: N/A - Total Score Total Score (Pre): 5 - Level of Risk Level of Risk: Low (0-5) Physician Notification (Post) - Physician Notified Physician Notified Date: 08/14/18 Physician Notified Time: 10:25 Spoke With: Lita New Order Received: Yes - Notification Comment Comment: PIH bloodwork and urine drawn and sent to lab, discharge to follow up at 1130 today in office Disposition - Disposition OB Disposition: Discharge to home, Written follow up instructions reviewed Discharge Date: 08/14/18 Discharge Time: 10:30 I agree with the RN Medical Screening Exam: Yes Risk & Benefit of care provided described in d/c instruction: Yes Diagnosis: GESTATIONAL HTN W/O SIGNIFICANT PROTEINURIA, THIRD TRIMESTER
== END 2018-08-14 10:30 | disposition home or self-care (01) ==
LOC: FBPOP 09:30
PROVIDERS: ATTEND Obstetrics & Gynecology
DX: O13.3 Gestational [pregnancy-induced] hypertension without significant proteinuria, third trimester (principal); Z3A.36 36 weeks gestation of pregnancy
CPT/HCPCS: 59025; 81001; 82565; 82570; 83615; 84156; 84450; 84460; 84520; 84550; 85025

== ENCOUNTER 2018-08-22 06:08 | Inpatient (IN) | payer MEDICAID ==
--- NOTE | 2018-08-21 16:56 | P.HPOB ---
History of Present Illness H&P Date: 08/21/18 Chief Complaint: Preeclampsia, repeat section. This is a 33-year-old female 2 para 1 with an estimated date of confinement of 09/11/2018, estimated gestational age of 37 and one sevenths weeks, who presents to labor and delivery for scheduled repeat section due to preeclampsia. She was admitted to the hospital a couple weeks ago and did have elevated blood pressures. Preeclamptic labs did show elevated protein to creatinine ratio. All other labs were normal and she had no other severe signs of preeclampsia. She was placed on bed rest and off work. She was seen by maternal medicine who recommends delivery at 37 weeks. She admits to good movement. NSTs have been reactive. She has been feeling occasional contractions. Obstetrical history: . History of 1 delivery at 37 weeks with her first child due to preeclampsia and failure to progress. Gynecologic history: No history of sexual transmitted diseases. Social history: She is . 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 Review of Systems Constitutional: Denies chills, Denies fever Eyes: denies blurred vision, denies pain Ears, nose, mouth and throat: Denies headache, Denies sore throat Cardiovascular: Denies chest pain, Denies shortness of breath Respiratory: Denies cough Gastrointestinal: Denies abdominal pain, Denies diarrhea, Denies nausea, Denies vomiting Genitourinary: Reports pelvic pain, Reports Musculoskeletal: Reports low back pain Neurological: Denies numbness, Denies weakness Psychiatric: Denies anxiety, Denies depression Past Medical History Past Medical History: GERD/Reflux Additional Past Medical History / Comment(s): Hodgkin's lymphoma @ age 22, status post radiation and chemo., Gerd during ., states hospitalized at [facility] July 2018 for elevated Bloodpressure & early signs of pre-eclampsia. History of Any Multi-Drug Resistant Organisms: None Reported Past Surgical History: Section Additional Past Surgical History / Comment(s): Lymph node excision, neck, 2009 Past Anesthesia/Blood Transfusion Reactions: No Reported Reaction, Motion Sickness Past Psychological History: No Psychological Hx Reported Smoking Status: Never smoker Past Alcohol Use History: None Reported Past Drug Use History: None Reported - Past Family History Mother History Unknown: Yes Family Medical History: No Reported History Additional Family Medical History / Comment(s): ANXIETY DEPRESSION Father Family Medical History: Coronary Artery Disease (CAD) Medications and Allergies Home Medications Medication Instructions Recorded Confirmed Type Pnv,Calcium 72/Iron/Folic Acid 1 tab PO DAILY 08/19/16 08/21/18 History [ Plus Tablet] Aspirin 81 mg PO DAILY 07/27/18 08/21/18 History Levothyroxine Sodium [Synthroid] 75 mcg PO DAILY 07/27/18 08/21/18 History Ranitidine HCl [Zantac] 150 mg PO BID PRN 08/04/18 08/21/18 History Allergies Allergy/AdvReac Type Severity Reaction Status Date / Time No Known Allergies Allergy Verified 08/21/18 13:54 Exam Osteopathic Statement: *. No significant issues noted on an osteopathic structural exam other than those noted in the History and Physical/Consult. Intake and Output 08/21/18 08/21/18 08/21/18 06:59 14:59 22:59 Other: Weight 79.832 kg HEENT: Within normal limits Heart: Regular rate and rhythm Lungs: Clear to auscultation bilaterally Abdomen: Cervix: Closed heart tones: Reactive, 140s. Contractions: Irregular Extremities: Negative Homans Assessment and Plan (1) Previous delivery affecting Status: Acute Code(s): O34.219 - MATERNAL CARE FOR UNSP TYPE SCAR FROM PREVIOUS DEL SNOMED Code(s): 996759743 (2) 37 weeks gestation of Status: Acute Code(s): Z3A.37 - 37 WEEKS GESTATION OF SNOMED Code( s): 78301281 (3) Preeclampsia Status: Acute Code(s): O14.90 - UNSPECIFIED PRE-ECLAMPSIA, UNSPECIFIED TRIMESTER SNOMED Code(s): 606924369 Plan: Proceed with repeat section. Careful monitoring of blood pressures. I have discussed the risks, benefits, and alternative therapies for the above- mentioned procedure and for both sedation/anesthesia as well as necessary blood products administration, if indicated, as they pertain to this patient. The patient has indicated her understanding and acceptance of the risks and procedures discussed.
[2018-08-22] MEDS ORDERED: LACTATED RINGERS 1,000 ML IV ONE (06:09)
[2018-08-22] MEDS ORDERED: ceFAZolin IN SWFI 2 GM/20 ML SYRINGE IVP ONE (06:09)
[2018-08-22] MEDS ORDERED: LIDOCAINE 1% 20 ML VIAL (10MG/ML) FOR IV START INTRADERMA PRN (06:09)
[2018-08-22] MEDS ORDERED: CITRIC ACID-SODIUM CITRATE 15 ML CUP PO ONE (06:09)
[2018-08-22 06:26] LABS: Basophils % (A) 0 %; Eosinophils # (A) 0.2 k/uL (0-0.7); Eosinophils % (A) 2 %; HCT 38.5 % (34.0-46.0); HGB 12.7 gm/dL (11.4-16.0); Lymphocytes # (A) 1.5 k/uL (1.0-4.8); Lymphocytes % (A) 15 %; MCH 27.3 pg (25.0-35.0); MCHC 33.1 g/dL (31.0-37.0); MCV 82.5 fL (80.0-100.0); Mean Platelet Volume 7.8; Monocytes # (A) 0.5 k/uL (0-1.0); Monocytes % (A) 5 %; Neutrophils # (A) 7.6 k/uL (1.3-7.7); Neutrophils % (A) 76 %; Platelet Count 206 k/uL (150-450); RBC 4.66 m/uL (3.80-5.40); RDW 14.6 % (11.5-15.5); WBC 9.9 k/uL (3.8-10.6)
[2018-08-22 06:29] VITALS: BMI 66.5
[2018-08-22 06:34] LABS: INR 0.9 (<1.2); Partial Thromboplastin Time 22.8 sec (22.0-30.0); Prothrombin Time 9.7 sec (9.0-12.0)
[2018-08-22] MEDS ORDERED: MORPHINE SULFATE (PF) 0.3 MG/0.3 ML SYR ONE (07:57)
[2018-08-22] MEDS ORDERED: KETOROLAC 30 MG/ML 1 ML VIAL ONE (07:57)
[2018-08-22] MEDS ORDERED: ONDANSETRON 4 MG/2 ML VIAL ONE (07:57)
[2018-08-22] MEDS ORDERED: NALBUPHINE 10 MG/ML (1 ML AMP) ONE (07:57)
[2018-08-22] MEDS ORDERED: DEXAMETHASONE SOD PHOS (MDV) 100 MG/10 ML VIAL ONE (07:57)
[2018-08-22] MEDS ORDERED: OXYTOCIN 10 UNIT/ML 1 ML VIAL ONE (07:57)
--- NOTE | 2018-08-22 08:50 | P.OP ---
Date of Procedure: 08/22/18 Preoperative Diagnosis: 1. Intrauterine at 37 and one sevenths weeks. 2. Preeclampsia without severe features. 3. History of previous section. Postoperative Diagnosis: Same Procedure(s) Performed: Repeat low transverse section Anesthesia: spinal (Duramorph) Surgeon: Jaja London Automatic Mounter #1: Omaira Jenkins Estimated Blood Loss (ml): 500 Pathology: other (Placenta) Condition: stable Disposition: floor Indications for Procedure: This is a 33-year-old female 2 para 1 at 37 and one sevenths weeks who presented for scheduled repeat section due to preeclampsia without severe features and history of previous section. I have discussed the risks, benefits, and alternative therapies for the above- mentioned procedure and for both sedation/anesthesia as well as necessary blood products administration, if indicated, as they pertain to this patient. The patient has indicated her understanding and acceptance of the risks and procedures discussed. Operative Findings: A viable female is noted in the vertex presentation with scores of 9 at 1 minute and 9 at 5 minutes and nuchal cord times one. weight was 9 lbs. 0 oz. Normal uterus tubes and ovaries are noted. Description of Procedure: The patient is taken to the operating room where she is placed in the dorsal supine position with leftward tilt after spinal Duramorph anesthesia is given. She is prepped and draped in the normal sterile fashion. Skin was tested and found to be adequately anesthetized. A Pfannenstiel skin incision was made with a scalpel through the previous laparotomy scar. A second knife was used to carry the incision down to the underlying layer of fascia. The fascia was nicked in the midline with a scalpel and then extended laterally bilaterally with Kidd scissors. The anterior lip of the fascia was grasped with 2 Miranda clamps and then dissected off the underlying rectus muscle in the midline with Kidd scissors. The inferior aspect of the fascial incision was grasped with 2 Miranda clamps and dissected off the underlying rectus muscle and the midline with Kidd scissors. Next the peritoneum layer was tented up with 2 hemostats and then entered sharply with the scalpel. The incision is extended superiorly and inferiorly with Metzenbaum scissors. Next a DeLee retractor is placed. The vesicouterine peritoneum is entered sharply with Metzenbaum scissors and extended laterally bilaterally with Metzenbaum scissors and then the bladder flap is pushed inferiorly. The lower uterine segment is incised in transverse fashion with the scalpel and then bluntly entered with a hemostat. Clear fluid is noted. The incision was then extended laterally bilaterally with 2 fingers. Next the 's head is delivered through the incision. Nose and mouth are bulb suctioned. The remainder of the is easily delivered and placed on mother's abdomen. Cord is clamped and cut. Infant is taken to warmer by nursing staff. Uterine fundus is gently massaged and placenta is delivered manually. Uterus is exteriorized and cleared of all clots and debris. Uterine incision is closed with 0 Vicryl suture in a running locked fashion. A second layer of 0 Vicryl suture is used in a running fashion for hemostasis. Several interrupted stitches are placed for hemostasis. Once adequate hemostasis as assured, the vesicouterine peritoneum is reapproximated with 2-0 Vicryl suture in a running fashion. Posterior cul-de-sac is suctioned of all clots and debris. Uterus is returned to the abdomen. Incision is noted to be hemostatic. Peritoneal layer is closed with 0 Vicryl suture in a running fashion. Muscle layer is reapproximated with 0 Vicryl suture in interrupted fashion. Fascia layer is then closed with 0 PDS suture with 2 sutures meeting in the midline and the knots buried in either side and in the midline. The subcutaneous tissue was then closed with 2-0 Vicryl suture. Skin layer was then closed with tg. All sponge and needle counts are correct. The patient is taken to recovery room in stable condition.
[2018-08-22] MEDS ORDERED: HYDROcodone/APAP 7.5-325MG 1 EACH TAB PO PRN (09:34)
[2018-08-22] MEDS ORDERED: SIMETHICONE 80 MG CHEWABLE PO PRN (09:34)
[2018-08-22] MEDS ORDERED: diphenhydrAMINE 50 MG/ML 1 ML VIAL IVP PRN ×2 (09:34)
[2018-08-22] MEDS ORDERED: NALOXONE 0.4 MG/ML 1 ML VIAL IV PRN (09:34)
[2018-08-22] MEDS ORDERED: ZOLPIDEM 5 MG TAB PO PRN (09:34)
[2018-08-22] MEDS ORDERED: OXYTOCIN 20 UNITS/1000 ML NS 1,000 ML IV SCH (09:34)
[2018-08-22] MEDS ORDERED: diphenhydrAMINE 50 MG CAP PO PRN (09:34)
[2018-08-22] MEDS ORDERED: ACETAMINOPHEN TAB 325 MG TAB PO PRN (09:34)
[2018-08-22] MEDS ORDERED: LANOLIN CREAM 5 GM TUBE TOPICAL PRN (09:34)
[2018-08-22] MEDS ORDERED: diphenhydrAMINE 25 MG CAP PO PRN (09:34)
[2018-08-22] MEDS ORDERED: ONDANSETRON 4 MG/2 ML VIAL IVP PRN (09:34)
[2018-08-22] MEDS ORDERED: HYDROcodone/APAP 5-325MG 1 EACH TAB PO PRN (09:34)
[2018-08-22] MEDS ORDERED: METOCLOPRAMIDE 5 MG/ML 2 ML VIAL IVP PRN (09:34)
[2018-08-22] MEDS ORDERED: KETOROLAC 30 MG/ML 1 ML VIAL IVP PRN (09:34)
[2018-08-22] MEDS: SENNOSIDES-DOCUSATE SODIUM 1 EACH TAB PO SCH ×2 (09:46→21:38)
[2018-08-22] MEDS: LACTATED RINGERS 1,000 ML IV SCH ×2 (12:26→16:05)
[2018-08-23] MEDS: LACTATED RINGERS 1,000 ML IV SCH (01:39)
[2018-08-23] MEDS: SENNOSIDES-DOCUSATE SODIUM 1 EACH TAB PO SCH ×2 (07:48→20:38)
[2018-08-23 08:25] LABS: Basophils % (A) 0 %; Eosinophils # (A) 0.1 k/uL (0-0.7); Eosinophils % (A) 1 %; HCT 34.6 % (34.0-46.0); HGB 11.6 gm/dL (11.4-16.0); Lymphocytes # (A) 1.6 k/uL (1.0-4.8); Lymphocytes % (A) 14 %; MCH 27.5 pg (25.0-35.0); MCHC 33.5 g/dL (31.0-37.0); MCV 82.2 fL (80.0-100.0); Mean Platelet Volume 8.1; Monocytes # (A) 0.5 k/uL (0-1.0); Monocytes % (A) 5 %; Neutrophils # (A) 9.3 k/uL (1.3-7.7); Neutrophils % (A) 80 %; Platelet Count 199 k/uL (150-450); RBC 4.21 m/uL (3.80-5.40); RDW 14.6 % (11.5-15.5); WBC 11.7 k/uL (3.8-10.6)
--- NOTE | 2018-08-23 09:13 | P.PNOBGPC ---
Subjective - Subjective Principal diagnosis: Status post repeat section postoperative day #1 Interval history: Patient is doing well. She is passing flatus but no bowel movement yet. She has ambulated without difficulty. Her pain is fairly well controlled. Lochia is decreasing. She is breast-feeding. Patient reports: Reports appetite normal, Reports voiding normally, Reports pain well controlled, Reports ambulating normally [employer]: doing well, nursing well Objective - Vital Signs Latest vital signs: Vital Signs Temp Pulse Resp BP Pulse Ox 08/23/18 07:59 96.7 F L 106 H 16 122/97 08/23/18 03:56 98.3 F 92 16 115/60 08/23/18 00:00 98.1 F 90 15 131/79 08/22/18 20:00 98 F 97 15 130/85 98 08/22/18 16:00 97.4 F L 16 139/90 97 08/22/18 12:00 97.8 F 111 H 16 133/79 97 08/22/18 10:52 97.4 F L 109 H 16 131/69 96 08/22/18 10:22 104 H 16 129/71 94 L 08/22/18 09:52 105 H 16 120/70 97 08/22/18 09:37 103 H 16 127/69 95 08/22/18 09:22 112 H 16 123/70 96 Intake and Output 08/22/18 08/23/18 08/23/18 22:59 06:59 14:59 Output Total 425 300 Balance -425 -300 Output: Urine 425 300 Uretheral (Khalil) 275 Other: # Voids 1 1 - Exam Extremities: Present: normal. Absent: tenderness, edema Abdomen: Present: normal appearance, soft (Positive bowel sounds 4). Absent: distention, tenderness Incision: Present: normal, dry, intact. Absent: erythematous Uterus: Present: normal, firm. Absent: tenderness - Labs Labs: Abnormal Lab Results - Last 24 Hours (Table) 08/23/18 Range/Units 08:02 WBC 11.7 H (3.8-10.6) k/uL Neutrophils # 9.3 H (1.3-7.7) k/uL Assessment and Plan Assessment: Status post repeat section postoperative day #1. (1) Previous delivery affecting Current Visit: No Status: Acute Code(s): O34.219 - MATERNAL CARE FOR UNSP TYPE SCAR FROM PREVIOUS DEL SNOMED Code(s): 254012425 (2) 37 weeks gestation of Current Visit: No Status: Acute Code(s): Z3A.37 - 37 WEEKS GESTATION OF SNOMED Code(s): 64246707 (3) Preeclampsia Current Visit: No Status: Acute Code(s): O14.90 - UNSPECIFIED PRE-ECLAMPSIA , UNSPECIFIED TRIMESTER SNOMED Code(s): 308653639 Plan: Will continue to monitor blood pressures. Encouraged ambulation. Continue with postoperative care.
--- NOTE | 2018-08-23 12:50 | P.PN ---
Progress Note - Text Date:08/23 Time:642 Patient is status post . Patient seen this morning with VAS score of 2.no c/o of pruritus, no c/o nausea/vomiting, comfortable and doing well.
[2018-08-23] MEDS: IBUPROFEN 600 MG TAB PO PRN ×2 (14:24→22:51)
[2018-08-24] MEDS ORDERED: LEVOTHYROXINE 75 MCG TAB PO SCH (06:30)
[2018-08-24 08:13] VITALS: RESP 18; TEMP 98.1
[2018-08-24] MEDS: SENNOSIDES-DOCUSATE SODIUM 1 EACH TAB PO SCH (08:15)
--- NOTE | 2018-08-24 08:57 | P.DS ---
Providers Date of admission: 08/22/18 06:08 Expected date of discharge: 08/24/18 Attending physician: Jaja London Primary care physician: Stated None - Discharge Diagnosis(es) (1) Previous delivery affecting Current Visit: No Status: Acute (2) 37 weeks gestation of Current Visit: No Status: Acute (3) Preeclampsia Current Visit: No Status: Acute Hospital Course: This is a 33-year-old female 2 para 1 at 37 and one sevenths weeks who presented for scheduled repeat section due to preeclampsia without severe features. She delivered a viable female with scores of 9 at 1 minute and 9 at 5 minutes and infant weight of 9 lbs. 0 oz. on 08/22/2018 via repeat section. Postoperatively she has done well. She is passing flatus and bowel movement. Her pain is been well controlled. She is only using Motrin a few times. Her blood pressures have overall been normal but she does have an isolated occasional elevated blood pressure. She has been afebrile. Abdomen is soft with positive bowel sounds 4. Incision is clean dry and intact with tg in place. Extremities show negative Homans. Impression is status post repeat section postoperative day #2. Plan is to discharge home today per patient request. She is advised to continue monitoring her blood pressures at least twice a day at home. Routine postoperative and i nstructions are given. Tg will be removed and Steri-Strips placed prior to discharge. She is advised follow-up in the office in 1 week for a postoperative check and in 6 weeks for check. She will be given a prescription for ibuprofen. She states she has a breast pump at home. She is advised to call the office if she has any further questions or concerns prior to her appointment time. She is advised to bring a log of her blood pressures to her appointment. Procedures: Repeat low transverse section on 08/22/2018 Patient Condition at Discharge: Stable Plan - Discharge Summary Discharge Rx Participant: Yes New Discharge Prescriptions: New Ibuprofen [Motrin] 600 mg PO Q6HR PRN #30 tab PRN Reason: Mild Pain Or Fever >= 100.5 Continue Pnv,Calcium 72/Iron/Folic Acid [ Plus Tablet] 1 tab PO DAILY Levothyroxine Sodium [Synthroid] 75 mcg PO DAILY Ranitidine HCl [Zantac] 150 mg PO BID PRN PRN Reason: Heartburn Discontinued Aspirin 81 mg PO DAILY Discharge Medication List Pnv,Calcium 72/Iron/Folic Acid [ Plus Tablet] 1 tab PO DAILY 08/19/16 [History] Levothyroxine Sodium [Synthroid] 75 mcg PO DAILY 07/27/18 [History] Ranitidine HCl [Zantac] 150 mg PO BID PRN 08/04/18 [History] Ibuprofen [Motrin] 600 mg PO Q6HR PRN #30 tab 08/24/18 [Rx] Follow up Appointment(s)/Referral(s): Jaja London DO [Doctor of Osteopathic Medicine] - 1 Week Activity/Diet/Wound Care/Special Instructions: Instructions 1. Do not begin any exercise program for 3 weeks. 2. Do not resume sexual relations for 3 weeks or longer if uncomfortable. 3. You may take tub baths or showers at any time. 4. You may use tampons if desired after 3 weeks. 5. Keep the area of episiotomy (stitches) clean and dry. 6. If you are not nursing, wear a good fitting, supportive bra during the day and limit fluid intake for at least 1 week to prevent breast engorgement. 7. Call the office, [phone], within the next week to make appointment for your 6 week checkup if it has not already been made. 8. Report any of the following occurrences to the doctor promptly: a. Heavy, excessive bleeding b. Chills, fever c. Burning or frequency of urination d. Pain or redness and breasts if nursing e. Increasing pain or swelling in episiotomy (stitches). In addition to the above instructions, the following additional should be followed: 1. No heavy lifting or straining (exercising) until after 6 week checkup. 2. Keep abdominal incision clean and dry: You may wear a dressing if more comfortable. 3. Make office appointment for 10 days after going home or as instructed by her doctor. Discharge Disposition: HOME SELF-CARE
[2018-08-24 09:52] VITALS: BP 130/88; PULSE 115
== END 2018-08-24 11:04 | disposition home or self-care (01) | DRG 788 ==
LOC: 4FBP 06:08
PROVIDERS: ADMIT Obstetrics & Gynecology; ATTEND Obstetrics & Gynecology
PROC: 10D00Z1 Extraction of Products of Conception, Low, Open Approach (ICD-10-PCS; principal; 2018-08-22 08:00)
DX: O14.94 Unspecified pre-eclampsia, complicating childbirth (principal); O34.211 Maternal care for low transverse scar from previous cesarean delivery; O69.81X0 Labor and delivery complicated by cord around neck, without compression, not applicable or unspecified; O99.62 Diseases of the digestive system complicating childbirth; K21.9 Gastro-esophageal reflux disease without esophagitis; O99.284 Endocrine, nutritional and metabolic diseases complicating childbirth; Z37.0 Single live birth; Z3A.37 37 weeks gestation of pregnancy; Z79.82 Long term (current) use of aspirin; Z79.890 Hormone replacement therapy; Z85.71 Personal history of Hodgkin lymphoma; Z92.21 Personal history of antineoplastic chemotherapy; Z92.3 Personal history of irradiation; Z82.49 Family history of ischemic heart disease and other diseases of the circulatory system
CPT/HCPCS: 85025; 85610; 85730; 86850; 86900; 86901; 88307

== ENCOUNTER → 2020-02-18 | Outpatient (CLI) | payer BC ==
[2020-02-19 01:32] LABS: T4, Free (Free Thyroxine) 1.2 ng/dL (0.80-1.80)
== END | disposition home or self-care (01) ==
LOC: LABWHC1 09:02
PROVIDERS: ATTEND Internal Medicine Endocrinology, Diabetes & Metabolism
DX: E03.8 Other specified hypothyroidism (principal)
CPT/HCPCS: 36415; 84439; 84443

== ENCOUNTER → 2022-10-04 | Outpatient (CLI) | payer OTHER | END | disposition home or self-care (01) | LOC: LABWHC1 14:59 | PROVIDERS: ATTEND Internal Medicine Endocrinology, Diabetes & Metabolism | DX: E03.8 Other specified hypothyroidism (principal) | CPT/HCPCS: 36415; 84443 ==

== ENCOUNTER → 2023-09-19 | Outpatient (CLI) | payer OTHER | END | disposition home or self-care (01) | LOC: LABWHC1 14:45 | PROVIDERS: ATTEND Internal Medicine Endocrinology, Diabetes & Metabolism | DX: E03.8 Other specified hypothyroidism (principal) | CPT/HCPCS: 36415; 84443 ==

== ENCOUNTER → 2024-07-12 | Outpatient (CLI) | payer OTHER | END | disposition home or self-care (01) | LOC: LABWHC1 12:21 | PROVIDERS: ATTEND Internal Medicine Endocrinology, Diabetes & Metabolism | DX: E03.8 Other specified hypothyroidism (principal) | CPT/HCPCS: 36415; 84443 ==

== ENCOUNTER → 2024-09-25 | Outpatient (CLI) | payer OTHER ==
[2024-09-25 18:13] LABS: Basophils # (A) 0.04 X 10*3/uL (0.00-0.10); Basophils % (A) 0.7 %; Eosinophils # (A) 0.15 X 10*3/uL (0.04-0.35); Eosinophils % (A) 2.5 %; HCT 38.8 % (37.2-46.3); HGB 11.8 g/dL (12.0-15.0); Lymphocytes # (A) 1.98 X 10*3/uL (0.90-5.00); Lymphocytes % (A) 32.4 %; MCH 24.1 pg (27.0-32.0); MCHC 30.4 g/dL (32.0-37.0); MCV 79.3 FL (80.0-97.0); Mean Platelet Volume 10.9 FL (9.5-12.2); Monocytes # (A) 0.34 X 10*3/uL (0.20-1.00); Monocytes % (A) 5.6 %; NRBC Per 100 WBC 0 X 10*3/uL (0.00-0.01); Neutrophils % (A) 58.6 %; Platelet Count 293 X 10*3/uL (140-440); RBC 4.89 X 10*6/uL (4.10-5.20); RDW 13.8 % (11.5-14.5); WBC 6.12 X 10*3/uL (4.50-10.00)
[2024-09-25 19:39] LABS: Erythrocyte Sedimentation Rate 11 mm/Hr (0-20)
== END | disposition home or self-care (01) ==
LOC: LABWHC1 14:51
PROVIDERS: ATTEND Nurse Practitioner Family
DX: Z00.00 Encounter for general adult medical examination without abnormal findings (principal); D50.0 Iron deficiency anemia secondary to blood loss (chronic)
CPT/HCPCS: 36415; 85025; 85652